=== PATIENT | male | born 1965 | race African-American/Black ===

== ENCOUNTER 2019-05-15 06:28 | Day surgery (SDC) | payer BC ==
[~2019-05-15] VITALS: Ht 180.3 cm; Wt 99.8 kg
[~2019-05-15 06:28] MED LIST: ADLT ASA LOW81 MG PO; LISINOP/HCTZ1 TA1 PO; LISINOPRIL10 MG PO; METFORMIN500 MG PO; METO50TA52 PO; PRILOSEC20 MG PO
[2019-05-15 08:01] VITALS: BP 153/94
== END 2019-05-15 08:08 | disposition home or self-care (01) | DRG 951 ==
LOC: ENDO 06:28
PROVIDERS: ATTEND Surgery
PROC: 0DBL8ZX Excision of Transverse Colon, Via Natural or Artificial Opening Endoscopic, Diagnostic (ICD-10-PCS; principal; 2019-05-15)
DX: Z12.11 Encounter for screening for malignant neoplasm of colon (principal); D12.3 Benign neoplasm of transverse colon; I10 Essential (primary) hypertension; Z86.010 Personal history of colon polyps